=== PATIENT | female | born 1955 | race Caucasian/White ===

== ENCOUNTER → 2018-03-17 06:43 | Outpatient (CLI) | payer OTHER, SELFPAY ==
--- NOTE | 2018-03-17 06:46 | ECHOCS_ITS ---
Reason For Study: CAD/ASHD Procedure This was a 2D Doppler, Color Flow transthoracic echocardiogram. Exam performed in department. Left Ventricle Normal LV size. The estimated ejection fraction is 35 %. Moderately severe segmental systolic dysfunction (see wall motion). Transmitral diastolic flow velocities suggest mild (stage 1) diastolic dysfunction (reversed pattern). Mid-Lateral : Akinetic. Lateral-Basal: Akinetic. Posterior-Basal: Hypokinetic. Mid-Posterior: Hypokinetic. Mid-Inferior: Mildly hypokinetic. Right Ventricle Normal RV size. Normal systolic function. Atria Normal left atrium. Normal right atrium. Mitral Valve Normal mitral valve. Mild (1+) eccentric mitral valve insufficiency. Tricuspid Valve Normal tricuspid valve. Mild (1+) tricuspid valve insufficiency. Pulmonary artery systolic pressure is 29 mmHg. Aortic Valve Trisinus/trileaflet aortic valve. Mild (1+) eccentric aortic valve insufficiency. Pulmonic Valve Normal pulmonic valve. Great Vessels Normal aortic root. The pulmonary artery is normal size. Normal inferior vena cava. Pericardium/Pleural No pericardial effusion. Medication Diluted definity 4ml given slow IV push to enhance endocardial definition. MMode/2D Measurements & Calculations LVIDd: 5.6 cm IVSd: 0.93 cm Ao root diam: 2.9 cm LVIDs: 4.5 cm LVPWd: 0.85 cm LA dimension: 3.6 cm RVDd: 2.3 cm FS: 20.0 % LAV(MOD-bp): 51.1 ml LVAd ap4: 37.0 cm2 SV(MOD-sp4): 68.1 ml LAV(MOD-bp) Indexed: 26.4 ml/m2 EDV(MOD-sp4): 137.9 ml LAV(MOD-sp2): 56.5 ml EDV(sp4-el): 142.2 ml LAV(MOD-sp4): 40.6 ml LVAs ap4: 24.5 cm2 ESV(MOD-sp4): 69.8 ml ESV(sp4-el): 72.9 ml EF(MOD-sp4): 49.4 % EF(sp4-el): 48.7 % SV(sp4-el): 69.3 ml LA A4 area: 15.4 cm2 RA A4 area: 10.6 cm2 Time Measurements MV dec time: 0.43 sec Doppler Measurements & Calculations MV E max enrqiue: 65.6 cm/sec Lat Peak E' Enrique: 6.7 cm/sec Med Peak E' Enrique: 5.5 cm/sec MV A max enrique: 76.0 cm/sec E/E' lat: 9.8 E/E' med: 11.9 MV E/A: 0.86 Ao V2 max: 191.5 cm/sec AI max enrique: 414.2 cm/sec LV V1 max: 94.0 cm/sec Ao max P.7 mmHg AI max P.7 mmHg LV V1 max P.5 mmHg AI dec slope: 127.9 cm/sec2 AI P1/2t: 948.6 msec PA V2 max: 102.2 cm/sec TR max enrique: 258.0 cm/sec TR max P.6 mmHg Interpretation Summary Normal LV size. The estimated ejection fraction is 35 %. Moderately severe segmental systolic dysfunction (see wall motion). Transmitral diastolic flow velocities suggest mild (stage 1) diastolic dysfunction (reversed pattern). Mild (1+) eccentric mitral valve insufficiency. Mild (1+) tricuspid valve insufficiency. Contrast injection was performed. Ordering Physician: Alejandro Sanford Referring Physician: TWIN HEWITT Performed By: Frieda Leon RDCS
--- NOTE | 2018-03-17 12:41 | STRESSREP ---
Stress Test Report Exercise myocardial perfusion stress test. 62 year old lady with a history of known coronary artery disease status post previous stenting. Medications aspirin atorvastatin and losartan. Stress protocol: Resting EKG demonstrates sinus bradycardia with a rate of 50 bpm T-wave inversions noted in lead III and aVF. The patient exercised according to the regular Phill protocol for a total duration of 5 minutes patient completed 2 minutes into stage II of the Phill protocol the maximum heart rate attained was 150 bpm which was 95% of maximum predicted heart rate the maximum workload attained was 7 metabolic equivalents. The patient maintained sinus rhythm throughout the recording at rest there were no ST or T-wave changes noted suggest ischemia. There were frequent premature ventricular complexes noted some in the pattern of bigeminy. At peak exercise no ST or T-wave changes were noted suggest ischemia. The resting blood pressure is 118/64 with a peak blood pressure of 148/78. Patient experienced short nests of breath and palpitations but no chest pain was noted. Myocardial perfusion protocol. 11.9 mCi of technetium 99m sestamibi was injected at rest. The patient exercised according to Phill protocol for 5 minutes completing 7 metabolic equivalents at peak exercise 34.2 mCi of technetium 99m sestamibi was injected stress images were obtained stress and rest images were reconstructed and compared in the short axis vertical long and horizontal long axis. Gated images were also obtained Perfusion SPECT analysis: Review of the stress images demonstrate a normal cardiac silhouette size. The septum mid inferior wall and apex appeared well perfused the anterior wall is also well perfused. The basal inferior wall and inferior inferolateral wall has a medium-sized perfusion defect. The mid lateral wall also has a perfusion defect. This is present on the stress and rest images to a similar extent suggesting a previous infarct involving the mid lateral wall, basal inferior and inferolateral wall. There is no reversibility to suggest ischemia. Gated SPECT analysis: The gated ejection fraction is 32%. Conclusion: Ischemic cardiomyopathy. Exercise stress test with evidence of previous basal inferior, inferolateral and mid lateral infarct. No ischemia present.
== END ==
PROVIDERS: Family Provider Family Medicine; PCP Family Medicine; Visit Provider Internal Medicine Cardiovascular Disease
DX: I05.9 Rheumatic mitral valve disease, unspecified (principal); Z95.5 Presence of coronary angioplasty implant and graft
CPT/HCPCS: 78452; 93017; 93306; A9500; Q9957; A4216; C8929

== ENCOUNTER → 2018-08-19 10:43 | Outpatient (CLI) | payer OTHER, SELFPAY ==
[2018-08-05 10:32] VITALS: BMI 32.3
--- NOTE | 2018-08-19 10:44 | ECHOD_ITS ---
Reason For Study: CAD/ASHD Procedure This was a 2D Doppler, Color Flow transthoracic echocardiogram. Exam performed in department. Left Ventricle Moderately dilated left ventricle. The estimated ejection fraction is 40 %. Moderate segmental systolic dysfunction (see wall motion). Stage 1 diastolic dysfunction. Lateral-Basal: Akinetic. Mid- Lateral : Akinetic. Posterior-Basal: Hypokinetic. Mid-Posterior: Hypokinetic. The rest of the wall segments are normal. Right Ventricle Normal RV size. Normal systolic function. Atria Normal left atrium. Normal right atrium. Mitral Valve Normal mitral valve. Mild (1+) eccentric mitral valve insufficiency. Tricuspid Valve Normal tricuspid valve. Mild tricuspid valve insufficiency. Pulmonary artery systolic pressure is 30 mmHg. Aortic Valve Trisinus/trileaflet aortic valve. Mild diffuse aortic valve thickening. Mild (1+) eccentric aortic valve insufficiency. Pulmonic Valve Normal pulmonic valve. Great Vessels Normal aortic root. The pulmonary artery is normal size. Normal inferior vena cava. Pericardium/Pleural No pericardial effusion. MMode/2D Measurements & Calculations LVIDd: 6.2 cm IVSd: 0.88 cm Ao root diam: 3.2 cm LVIDs: 5.0 cm LVPWd: 0.75 cm RVDd: 3.5 cm FS: 19.1 % LAV(MOD-bp): 48.5 ml LVAd ap4: 37.2 cm2 SV(MOD-sp4): 58.0 ml LAV(MOD-bp) Indexed: 24.8 ml/m2 EDV(MOD-sp4): 139.0 ml LAV(MOD-sp2): 51.9 ml EDV(sp4-el): 146.8 ml LAV(MOD-sp4): 40.0 ml LVAs ap4: 26.1 cm2 ESV(MOD-sp4): 81.0 ml ESV(sp4-el): 84.9 ml EF(MOD-sp4): 41.7 % EF(sp4-el): 42.2 % SV(sp4-el): 61.9 ml LA A4 area: 15.6 cm2 LA dimension(2D): 3.8 cm RA A4 area: 10.8 cm2 Time Measurements MV dec time: 0.35 sec Doppler Measurements & Calculations MV E max enrique: 59.0 cm/sec Lat Peak E' Enrique: 7.3 cm/sec Med Peak E' Enrique: 5.8 cm/sec MV A max enrique: 88.7 cm/sec E/E' lat: 8.1 E/E' med: 10.3 MV E/A: 0.67 Ao V2 max: 186.5 cm/sec AI max enrique: 430.6 cm/sec LV V1 max: 80.2 cm/sec Ao max P.9 mmHg AI max P.2 mmHg LV V1 max P.6 mmHg AI dec slope: 157.2 cm/sec2 AI P1/2t: 802.0 msec PA V2 max: 106.1 cm/sec TR max enrique: 253.3 cm/sec TR max P.7 mmHg Interpretation Summary Moderately dilated left ventricle. The estimated ejection fraction is 40 %. Stage 1 diastolic dysfunction. Moderate segmental systolic dysfunction (see wall motion). Mild tricuspid valve insufficiency. Pulmonary artery systolic pressure is 30 mmHg. Compared to previous study, the left ventricular systolic function is the same.. Ordering Physician: Alejandro Sanford Referring Physician: TWIN HEWITT Performed By: Frieda Leon RDCS
--- OUTSIDE RECORDS SUMMARY | 2018-10-05 05:42 | XMS RPT_ITS ---
:1955 Author Organization [facility] Care Team Providers Name Role Phone Alejandro Sanford Attending Unavailable Claribel, Alejandro Referring Unavailable Twin Portillo Primary Care Unavailable Claribel, Alejandro Consulting Unavailable Elen Khan Attending Unavailable Claribel, Jenera Attending Unavailable Twin Portillo Referring Unavailable Twin Portillo Primary Care Unavailable ClaribelNathan galvanril Attending Unavailable Claribel, Alejandro Referring Unavailable Twin Portillo Primary Care Unavailable Claribel, Alejandro Attending Unavailable Claribel, Jenera Attending Unavailable Twin Portillo Referring Unavailable Claribel, Alejandro Attending Unavailable Claribel, Jenera Referring Unavailable Twin Portillo Primary Care Unavailable PROBLEMS PROBLEMS DATE TYPE CONDITION / CODE ATTENDING STATUS SOURCE 08/19/2018 Unknown I25.5 - Ischemic Claribel, Jenera Active [facility] cardiomyopathy / Community I25.5(ICD-10) Hospital Repository 08/05/2018 Unknown I25.10 - Claribel, Alejandro Active [facility] Atherosclerotic [facility] coronary artery Repository without angina pectoris / I25.10(ICD-10) 08/05/2018 Unknown I10 - Essential Claribel, Jenera Active [facility] (primary) Community hypertension / Hospital I10(ICD-10) Repository 08/05/2018 Unknown E78.00 - Pure Claribel, Alejandro Active [facility] hypercholesterolemia, Community unspecified / Hospital E78.00(ICD-10) Repository 01/06/2018 Unknown E66.9 - Obesity, Claribel, Jenera Active [facility] unspecified / Community E66.9(ICD-10) Hospital Repository 01/06/2018 Unknown Z95.5 - Presence of Claribel, Jenera Active [facility] coronary angioplasty Community implant and graft / Hospital Z95.5(ICD-10) Repository 01/06/2018 Unknown E78.5 - Claribel, Alejandro Active [facility] Hyperlipidemia, Community unspecified / Hospital E78.5(ICD-10) Repository 01/06/2018 Unknown I05.9 - Rheumatic Claribel, 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, Community unspecified / Hospital I05.9(ICD-10) Repository PROCEDURES PROCEDURES No Procedure Records FoundRESULTS RESULTS ECHOCARDIOGRAM COMPLETE Observed: 08/19/2018 Status: F Source: [facility] 1:45 PM [facility] REPOSITORY [facility] Cardiovascular Services [address] [place] [address] Echo Complete 08/19/18 1114 MR#: [id number] Acct: [id number] Name: MACIE GOEL Rep #: [id number] : 1955 62 From: Alejandro Sanford MD Attending Dr: Claribel BUSTAMANTE,Alejandro Status: REG CLI Ordering Dr: Alejandro Sanford MD Date: 08/19/18 Location: [facility] Sex: F C Admitted: Reason For Study: CAD/ASHD Procedure This was a 2D Doppler, Color Flow transthoracic echocardiogram. Exam performed in department. Left Ventricle Moderately dilated left ventricle. The estimated ejection fraction is 40 %. Moderate segmental systolic dysfunction (see wall motion). Stage 1 diastolic dysfunction. Lateral-Basal: Akinetic. Mid- Lateral : Akinetic. Posterior-Basal: Hypokinetic. Mid-Posterior: Hypokinetic. The rest of the wall segments are normal. Right Ventricle Normal RV size. Normal systolic function. Atria Normal left atrium. Normal right atrium. Mitral Valve Normal mitral valve. Mild (1+) eccentric mitral valve insufficiency. Tricuspid Valve Normal tricuspid valve. Mild tricuspid valve insufficiency. Pulmonary artery systolic pressure is 30 mmHg. Aortic Valve Trisinus/trileaflet aortic valve. Mild diffuse aortic valve thickening. Mild (1+) eccentric aortic valve insufficiency. Pulmonic Valve Normal pulmonic valve. Great Vessels Normal aortic root. The pulmonary artery is normal size. Normal inferior vena cava. Pericardium/Pleural No pericardial effusion. MMode/2D Measurements AND Calculations LVIDd: 6.2 cm IVSd: 0.88 cm Ao root diam: 3.2 cm LVIDs: 5.0 cm LVPWd: 0.75 cm RVDd: 3.5 cm FS: 19.1 % LAV(MOD-bp): 48.5 ml LVAd ap4: 37.2 cm2 SV(MOD-sp4): 58.0 ml LAV(MOD-bp) Indexed: 24.8 ml/m2 EDV(MOD-sp4): 139.0 ml LAV(MOD-sp2): 51.9 ml EDV(sp4-el): 146.8 ml LAV(MOD-sp4): 40.0 ml LVAs ap4: 26.1 cm2 ESV(MOD-sp4): 81.0 ml ESV(sp4-el): 84.9 ml EF(MOD-sp4): 41.7 % EF(sp4-el): 42.2 % SV(sp4-el): 61.9 ml LA A4 area: 15.6 cm2 LA dimension(2D): 3.8 cm RA A4 area: 10.8 cm2 Time Measurements MV dec time: 0.35 sec Doppler Measurements AND Calculations MV E max enrique: 59.0 cm/sec Lat Peak E' Enrique: 7.3 cm/sec Med Peak E' Enrique: 5.8 cm/sec MV A max enrique: 88.7 cm/sec E/E' lat: 8.1 E/E' med: 10.3 MV E/A: 0.67 Ao V2 max: 186.5 cm/sec AI max enrique: 430.6 cm/sec LV V1 max: 80.2 cm/sec Ao max P.9 mmHg AI max P.2 mmHg LV V1 max P.6 mmHg AI dec slope: 157.2 cm/sec2 AI P1/2t: 802.0 msec PA V2 max: 106.1 cm/sec TR max enrique: 253.3 cm/sec TR max P.7 mmHg Interpretation Summary Moderately dilated left ventricle. The estimated ejection fraction is 40 %. Stage 1 diastolic dysfunction. Moderate segmental systolic dysfunction (see wall motion). Mild tricuspid valve insufficiency. Pulmonary artery systolic pressure is 30 mmHg. Compared to previous study, the left ventricular systolic function is the same.. Ordering Physician: Alejandro Sanford Referring Physician: TWIN PORTILLO Performed By: Frieda Leon RDCS 08/19/18 1344 Date Alejandro Sanford MD CC: Alejandro Sanford MD; Twin Portillo MD Date Dictated: 08/19/18 1114 Date Transcribed: 08/19/18 1344 Research Administrator: Signed CARDIOLOGY VISIT Observed: 08/05/2018 Status: F Source: [place] REPORT 11:02 AM [facility] REPOSITORY [facility] [address] [place] [address] OFFICE VISIT Date of Service: 08/05/18 MR#: [id number] Acct: [id number] Name: MACIE GOEL Rep #: [id number] : 1955 Provider: Alejandro Sanford MD Age/Sex: 62/F [place] [facility] Status: Signed HPI HPI Chief Complaint: Follow-up Details: MACIE GOEL, is a 62 F who presents to the office today for a follow-up visit. She is a lady with a history of coronary artery disease status post cardiac catheterization which had demonstrated a normal left main coronary artery, left anterior descending artery with mild disease, left circumflex artery with a high-grade stenosis for which she underwent angioplasty and stenting. The right coronary artery did not demonstrate any significant abnormality. Her ejection fraction at that time was noted to be 40-45% with mild mitral regurgitation. This was in 2014. After her last visit she underwent an echocardiogram which demonstrated an ejection fraction of 35% with segmental wall motion abnormalities noted. She had been asymptomatic. She was started on medication and has denied any chest pain or shortness of breath or paroxysmal nocturnal dyspnea. She has had no dizziness or diaphoresis no near syncope or syncope. Her physical exam today demonstrates clear lung winters regular rate and rhythm and no pedal edema. 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 Required: No Accompanied by: None Is patient in pain?: No Allergies Sulfa (Sulfonamide Antibiotics) Adverse Reaction (Verified 01/06/18 13:04) Unknown sulfamethoxazole [From Bactrim] Adverse Reaction (Verified 01/06/18 13:04) Unknown trimethoprim [From Bactrim] Adverse Reaction (Verified 01/06/18 13:04) Unknown Medications aspirin 81 mg tablet,delayed release 81 mg PO QDAY 01/05/18 [History Confirmed 08/05/18] atorvastatin 80 mg tablet 80 mg PO QHS #90 tab 01/06/18 [Rx Confirmed 08/05/18] losartan 25 mg tablet 25 mg PO QDAY #90 tab 01/06/18 [Rx Confirmed 08/05/18] nitroglycerin 0.4 mg sublingual tablet 0.4 mg SUBLINGUAL Q5- 15M PRN #25 tab 01/06/18 [Rx Confirmed 08/05/18] carvedilol 6.25 mg tablet 6.25 mg PO BID #180 tab 08/05/18 [Rx Confirmed 08/05/18] [facility] Medical History Obesity (BMI 30-39.9) (Chronic) Ischemic cardiomyopathy (Chronic) Atherosclerosis of coronary artery of [place] heart without angina pectoris (Chronic) Hypertension (Chronic) Hyperlipidemia (Chronic) Surgical History History of coronary artery stent placement (Chronic 07/24/15) History of appendectomy (Chronic) History of left heart catheterization (Chronic 07/24/15) History of tonsillectomy (Chronic) Hx of cholecystectomy (Chronic) Family History Mother Heart disease atrial fib, PPM Brother Hypertension Father Cancer Social History Smoking Status: Never smoker alcohol intake: never ROS Const Const: Negative for fatigue, weakness, night sweats, excessive sweating, frequent falls, headache(s) or daytime sleepiness Eyes Eyes: Negative for loss of peripheral vision, transient loss of vision, blind spots, double vision or blurry vision ENT ENT: Negative for headache(s), dizziness, balance problems, Nosebleed/epistaxis, tongue swelling or lip swelling Cardio Chest Pain: No Palpitations: No Edema: None Muscle aches with walking: None Resp Respiratory: Negative for SOB at rest, SOB orthopnea\SOB lying down, Cough, paroxysmal nocturnal dyspnea or SOB with activity GI GI: Negative nausea, vomiting, heartburn, black,tarry stools or bright, red blood in stools : Negative for hematuria Musc Musc: Negative for balance problems, muscle aches/ myalgia, muscle weakness or joint pain Skin Skin: Negative non-healing lesions, unusual bruising or rash Neuro Neuro: Negative for weakness, frequent falls, headache(s), double vision, dizziness, lightheadedness, orthostatic symptoms, blurry vision or lack of coordination Shashank Hematologic/Lymphatic: Negative for easy bruising or easy bleeding Endo Endo: Negative for fatigue, excessive sweating, cold intolerance, heat intolerance, increased thirst/drinking or hair loss Psych Psych: Negative for anxiety or depression Allergy Allergy/Immunology: Negative for throat swelling, Negative for tongue swelling, Negative for hives, Negative for rash, Negative for lip swelling Cardiology Exam Const Appearance: cooperative, healthy appearing, well developed, well groomed and no acute distress Nutritional Appearance: well nourished and average body habitus Orientation: alert, awake and oriented x3 Head Head: normal to inspection, normocephalic and atraumatic Ears: hearing grossly normal bilaterally and external ears normal Nose: external nose normal, nasal mucous membranes and turbinates normal, nares normal, septum normal, no nasal discharge Face and Sinus: face symmetric Mouth: oral mucosae normal, tongue normal, oropharynx normal and moist mucous membranes Teeth and gingiva: dentition normal Throat: posterior oropharynx normal, tonsils normal and uvula midline Eyes General: appearance normal, both eyes and all related structures Eyelids: eyelids normal Conjunctivae: conjunctivae normal Pupils: PERRL, normal by confrontation and accommodation normal EOM: EOM intact bilaterally Neck Neck: normal visual inspection, trachea midline and no JVD JVD: +5 Carotids: normal carotid upstroke and bounding pulses Chest Chest inspection: normal inspection of the chest, symmetric chest movement and normal respiratory effort Auscultation: Bilateral: Clear to Auscultation Cardio Palpation: normal PMI Rate: regular rate Rhythm: regular rhythm Heart sounds: S1 normal, S2 normal and normal, physiologic split S2; negative rub, gallop or murmur GI GI: normal to inspection, soft, no hepatosplenomegaly and bowel sounds present Neuro General: alert, awake, oriented x3, no focal sensory deficit, gait normal and moves all extremities Skin Skin: no rashes or lesions noted Extremities Pulses: Normal: Right Femoral Pulse, Left Femoral Pulse, Right Dorsalis Pedis Pulse, Left Dorsalis Pedis Pulse, Right Posterior Tibial Pulse, Left Posterior Tibial Pulse, Right Radial Pulse, Left Radial Pulse Lower Extremity Edema: None: Bilateral Musculoskel Musculoskeletal: No joint tenderness Psych Psychological: normal affect Assessment AND Plan 1. Ischemic cardiomyopathy I25.5 Plan She does have a history of ischemic cardiomyopathy with her echocardiographic results from March as noted above. She had been placed on carvedilol and losartan which will be increased and we will repeat her echocardiogram to see whether there is been any improvement in her function. Depending on those findings further recommendations will be made. Orders Orders: 2. Atherosclerosis of coronary artery of de[place] heart without angina pectoris I25.10 [id number] Cx w/ Xience Alpine Stent 07/24/2015 Plan She does have a history of atherosclerotic cardiovascular disease most recent stress test demonstrated evidence of previous inferior, inferolateral and inferior basal infarct with no evidence of ischemia. This corresponds to the area of the previous angioplasty and stenting. We will continue with medical therapy especially as she has no symptomatology. 3. Essential hypertension I10 Plan She does have a history of hypertension which appears to be fairly well controlled I would suggest that we increase the dose of her carvedilol to 6.25 mg twice a day. She will continue this together with her losartan. 4. Pure hypercholesterolemia E78.00 Plan She does have a history of hyperlipidemia. Her most recent lipid profile demonstrated a total cholesterol 144, HDL of 51 and LDL of 75. No changes will be made she will remain on her high intensity statin. Plan Detail Other Medications New: Discontinued: carvedilol give with food (meal/snack) Discontinued Re3.125 mg PO BID 60 tabs 11RF ason: Order Changed Follow Up 6 Months (mmm) Coding Level of Care Code Off vis,est,level 3 Diagnoses Ischemic cardiomyopathy I25.5 Atherosclerosis of coronary artery of [place] heart without angina pectoris I25.10 Essential hypertension I10 Hypertension type: essential hypertension Pure hypercholesterolemia E78.00 Hyperlipidemia type: pure hypercholesterolemia Coding Level of Care Code Off vis,est,level 3 Diagnoses Ischemic cardiomyopathy I25.5 Atherosclerosis of coronary artery of [place] heart without angina pectoris I25.10 Essential hypertension I10 Hypertension type: essential hypertension Pure hypercholesterolemia E78.00 Hyperlipidemia type: pure hypercholesterolemia 08/05/18 1102 <Electronically signed by Alejandro Sanford MD> Date Alejandro Sanford MD Cosigner Signature: Date (if applicable) CC: Twin Portillo MD ECHO, COMPLETE W/ Observed: 03/17/2018 Status: F Source: [facility] CONTRAST 1:18 PM [facility] REPOSITORY [facility] Cardiovascular Services [address] [place] [address] Echo Complete W/ Contrast 03/17/18 0920 MR#: [id number] Acct: [id number] Name: AMANDOMACIE Artemio Rep #: [id number] : 1955 62 From: Alejandro Sanford MD Attending Dr: Alejandro Sanford MD Status: REG CLI Ordering Dr: Alejandro Sanford MD Date: 03/17/18 Location: [facility] Sex: F C Admitted: Reason For Study: CAD/ASHD Procedure This was a 2D Doppler, Color Flow transthoracic echocardiogram. Exam performed in department. Left Ventricle Normal LV size. The estimated ejection fraction is 35 %. Moderately severe segmental systolic dysfunction (see wall motion). Transmitral diastolic flow velocities suggest mild (stage 1) diastolic dysfunction (reversed pattern). Mid-Lateral : Akinetic. Lateral-Basal: Akinetic. Posterior-Basal: Hypokinetic. Mid-Posterior: Hypokinetic. Mid-Inferior: Mildly hypokinetic. Right Ventricle Normal RV size. Normal systolic function. Atria Normal left atrium. Normal right atrium. Mitral Valve Normal mitral valve. Mild (1+) eccentric mitral valve insufficiency. Tricuspid Valve Normal tricuspid valve. Mild (1+) tricuspid valve insufficiency. Pulmonary artery systolic pressure is 29 mmHg. Aortic Valve Trisinus/trileaflet aortic valve. Mild (1+) eccentric aortic valve insufficiency. Pulmonic Valve Normal pulmonic valve. Great Vessels Normal aortic root. The pulmonary artery is normal size. Normal inferior vena cava. Pericardium/Pleural No pericardial effusion. Medication Diluted definity 4ml given slow IV push to enhance endocardial definition. MMode/2D Measurements AND Calculations LVIDd: 5.6 cm IVSd: 0.93 cm Ao root diam: 2.9 cm LVIDs: 4.5 cm LVPWd: 0.85 cm LA dimension: 3.6 cm RVDd: 2.3 cm FS: 20.0 % LAV(MOD-bp): 51.1 ml LVAd ap4: 37.0 cm2 SV(MOD-sp4): 68.1 ml LAV(MOD-bp) Indexed: 26.4 ml/m2 EDV(MOD-sp4): 137.9 ml LAV(MOD-sp2): 56.5 ml EDV(sp4-el): 142.2 ml LAV(MOD-sp4): 40.6 ml LVAs ap4: 24.5 cm2 ESV(MOD-sp4): 69.8 ml ESV(sp4-el): 72.9 ml EF(MOD-sp4): 49.4 % EF(sp4-el): 48.7 % SV(sp4-el): 69.3 ml LA A4 area: 15.4 cm2 RA A4 area: 10.6 cm2 Time Measurements MV dec time: 0.43 sec Doppler Measurements AND Calculations MV E max enrique: 65.6 cm/sec Lat Peak E' Enrique: 6.7 cm/sec Med Peak E' Enrique: 5.5 cm/sec MV A max enrique: 76.0 cm/sec E/E' lat: 9.8 E/E' med: 11.9 MV E/A: 0.86 Ao V2 max: 191.5 cm/sec AI max enrique: 414.2 cm/sec LV V1 max: 94.0 cm/sec Ao max P.7 mmHg AI max P.7 mmHg LV V1 max P.5 mmHg AI dec slope: 127.9 cm/sec2 AI P1/2t: 948.6 msec PA V2 max: 102.2 cm/sec TR max enrique: 258.0 cm/sec TR max P.6 mmHg Interpretation Summary Normal LV size. The estimated ejection fraction is 35 %. Moderately severe segmental systolic dysfunction (see wall motion). Transmitral diastolic flow velocities suggest mild (stage 1) diastolic dysfunction (reversed pattern). Mild (1+) eccentric mitral valve insufficiency. Mild (1+) tricuspid valve insufficiency. Contrast injection was performed. Ordering Physician: Alejandro Sanford Referring Physician: TWIN PORTILLO Performed By: Frieda Leon RDCS 03/17/18 1318 Date Alejandro Sanford MD CC: Alejandro Sanford MD; Twin Portillo MD Date Dictated: 03/17/18919 Date Transcribed: 03/17/181317 Research Administrator: Signed STRESS REPORT Observed: 03/17/2018 Status: F Source: [facility] 12:45 PM [facility] REPOSITORY [facility] Cardiovascular Services [address] [place] [address] MR#: [id number] Acct: [id number] Name: MACIE GOEL Rep #: [id number] : 1955 62 From: Alejandro Sanford MD Primary Care: Twin Portillo MD Status: REG CLI Ordering Dr: Sex: F C Stress Test Report Exercise myocardial perfusion stress test. 62 year old lady with a history of known coronary artery disease status post previous stenting. Medications aspirin atorvastatin and losartan. Stress protocol: Resting EKG demonstrates sinus bradycardia with a rate of 50 bpm T-wave inversions noted in lead III and aVF. The patient exercised according to the regular Phill protocol for a total duration of 5 minutes patient completed 2 minutes into stage II of the Phill protocol the maximum heart rate attained was 150 bpm which was 95% of maximum predicted heart rate the maximum workload attained was 7 metabolic equivalents. The patient maintained sinus rhythm throughout the recording at rest there were no ST or T-wave changes noted suggest ischemia. There were frequent premature ventricular complexes noted some in the pattern of bigeminy. At peak exercise no ST or T-wave changes were noted suggest ischemia. The resting blood pressure is 118/64 with a peak blood pressure of 148/78. Patient experienced short nests of breath and palpitations but no chest pain was noted. Myocardial perfusion protocol. 11.9 mCi of technetium 99m sestamibi was injected at rest. The patient exercised according to Phill protocol for 5 minutes completing 7 metabolic equivalents at peak exercise 34.2 mCi of technetium 99m sestamibi was injected stress images were obtained stress and rest images were reconstructed and compared in the short axis vertical long and horizontal long axis. Gated images were also obtained Perfusion SPECT analysis: Review of the stress images demonstrate a normal cardiac silhouette size. The septum mid inferior wall and apex appeared well perfused the anterior wall is also well perfused. The basal inferior wall and inferior inferolateral wall has a medium-sized perfusion defect. The mid lateral wall also has a perfusion defect. This is present on the stress and rest images to a similar extent suggesting a previous infarct involving the mid lateral wall, basal inferior and inferolateral wall. There is no reversibility to suggest ischemia. Gated SPECT analysis: The gated ejection fraction is 32%. Conclusion: Ischemic cardiomyopathy. Exercise stress test with evidence of previous basal inferior, inferolateral and mid lateral infarct. No ischemia present. 03/17/18 8855 <Electronically signed by Alejandro Sanford MD> Date Alejandro Sanford MD CC: Alejandro Sanford MD; Twin Portillo MD Date Dictated: 03/17/18 1241 Date Transcribed: 03/17/18 1241 Research Administrator: [place] Signed CARDIOLOGY VISIT Observed: 01/06/2018 Status: F Source: [facility] REPORT 1:50 PM [facility] REPOSITORY [facility] [address] [place] [address] OFFICE VISIT Date of Service: 01/06/18 MR#: [id number] Acct: [id number] Name: MACIE GOEL Rep #: [id number] : 1955 Provider: Alejandro Sanford MD Age/Sex: 62/F [place] [facility] [place]: Signed HPI HPI Chief Complaint: Initial cardiovascular evaluation Details: MACIE GOEL, is a 62 F who presents to the office today for an initial cardiovascular evaluation. She is a pleasant lady with a history of hyperlipidemia coronary artery disease diagnosed in 2014 after a stress test. She apparently underwent a stress test and [place] which she flunked and had to be transferred emergently to [facility] she underwent an echocardiogram with demonstrated an ejection fraction of 40-45% with mild mitral regurgitation with a posteriorly directed jet. She underwent a cardiac catheterization which demonstrated a normal left main coronary artery, and left anterior descending artery with mild disease, a left circumflex artery with a high-grade stenotic lesion for which she underwent angioplasty and stenting with a 3 x 23 mm drug-eluting stent. Her right coronary artery did not demonstrate any significant stenosis. Since then she is apparently done well denying any chest pain or shortness breath or paroxysmal nocturnal dyspnea pedal edema she has had no neck arm or jaw discomfort suggest angina. She has been compliant with all her medications she presents today for a reevaluation of her cardiac condition. Her physical exam today demonstrates clear lung winters regular rate and rhythm a 2/6 systolic murmur noted at the apex radiating to the axilla and no pedal edema present. Intake Vital Signs01/06/18 Height 5 ft 5.5 in Intake Visit Reasons: PCP ref'd for CAD Allergies Sulfa (Sulfonamide Antibiotics) Adverse Reaction (Verified 01/06/18 13:04) Unknown sulfamethoxazole [From Bactrim] Adverse Reaction (Verified 01/06/18 13:04) Unknown trimethoprim [From Bactrim] Adverse Reaction (Verified 01/06/18 13:04) Unknown Medications aspirin 81 mg tablet,delayed release 81 mg PO QDAY 01/05/18 [History Confirmed 01/06/18] atorvastatin 80 mg tablet 80 mg PO QHS #90 tab 01/06/18 [Rx Confirmed 01/06/18] losartan 25 mg tablet 25 mg PO QDAY #90 tab 01/06/18 [Rx Confirmed 01/06/18] nitroglycerin 0.4 mg sublingual tablet 0.4 mg SUBLINGUAL Q5- 15M PRN #25 tab 01/06/18 [Rx Confirmed 01/06/18] [facility] Medical History Obesity (BMI 30-39.9) (Chronic) Ischemic cardiomyopathy (Chronic) Atherosclerosis of coronary artery of [place] heart without angina pectoris (Chronic) Hypertension (Chronic) Hyperlipidemia (Chronic) Surgical History History of coronary artery stent placement (Chronic 07/24/15) History of appendectomy (Chronic) History of left heart catheterization (Chronic 07/24/15) History of tonsillectomy (Chronic) Hx of cholecystectomy (Chronic) Family History Mother Heart disease atrial fib, PPM Brother Hypertension Father Cancer Social History Smoking Status: Never smoker alcohol intake: never ROS Const Const: Negative for fatigue, weakness, difficulty sleeping, frequent falls, headache(s) or excessive sweating Eyes Eyes: Negative for loss of peripheral vision, transient loss of vision, blurry vision or double vision ENT ENT: Negative for headache(s), dizziness, Nosebleed/epistaxis or balance problems Cardio Chest Pain: No Edema: None Muscle aches with walking: None Resp Respiratory: Negative for SOB with activity, SOB at rest, SOB orthopnea\SOB lying down or paroxysmal nocturnal dyspnea GI GI: Negative nausea or heartburn : Negative for hematuria Musc Musc: Negative for muscle aches/ myalgia, muscle weakness, joint pain or balance problems Skin Skin: Negative non-healing lesions, unusual bruising or rash Neuro Neuro: Negative for weakness, frequent falls, blurry vision, headache(s), dizziness, lightheadedness, orthostatic symptoms or double vision Shashank Hematologic/Lymphatic: Negative for easy bruising Endo Endo: Negative for fatigue, excessive sweating or increased thirst/drinking Psych Psych: Negative for anxiety or depression Allergy Allergy/Immunology: Negative for hives, Negative for rash Cardiology Exam Const Appearance: cooperative, healthy appearing, well developed, well groomed and no acute distress Nutritional Appearance: well nourished and average body habitus Orientation: alert, awake and oriented x3 Head Head: normal to inspection, normocephalic and atraumatic Ears: hearing grossly normal bilaterally and external ears normal Nose: external nose normal, nasal mucous membranes and turbinates normal, nares normal, septum normal, no nasal discharge Face and Sinus: face symmetric Mouth: oral mucosae normal, tongue normal, oropharynx normal and moist mucous membranes Teeth and gingiva: dentition normal Throat: posterior oropharynx normal, tonsils normal and uvula midline Eyes General: appearance normal, both eyes and all related structures Eyelids: eyelids normal Conjunctivae: conjunctivae normal Pupils: PERRL, normal by confrontation and accommodation normal EOM: EOM intact bilaterally Neck Neck: normal visual inspection, trachea midline and no JVD JVD: +5 Carotids: normal carotid upstroke and bounding pulses Chest Chest inspection: normal inspection of the chest, symmetric chest movement and normal respiratory effort Auscultation: Bilateral: Clear to Auscultation Cardio Palpation: normal PMI Rate: regular rate Rhythm: regular rhythm Heart sounds: S1 normal and S2 normal Murmur: Grade 2/6, soft, late systolic and apex GI GI: normal to inspection, soft, no hepatosplenomegaly and bowel sounds present Neuro General: alert, awake, oriented x3, no focal sensory deficit, gait normal and moves all extremities Skin Skin: no rashes or lesions noted Extremities Pulses: Normal: Right Femoral Pulse, Left Femoral Pulse, Right Dorsalis Pedis Pulse, Left Dorsalis Pedis Pulse, Right Posterior Tibial Pulse, Left Posterior Tibial Pulse, Right Radial Pulse, Left Radial Pulse Lower Extremity Edema: None: Bilateral Musculoskel Musculoskeletal: No joint tenderness Psych Psychological: normal affect Assessment AND Plan 1. History of coronary artery stent placement Z95.5 [id number] Cx w/ 3.0 x 23 mm Xience Alpine Stent 07/24/2015 Plan She does have a history of coronary artery disease status post stent placement in the circumflex artery distribution almost 3 years ago. My recommendation at this time will be for us to pursue a stress test to exclude any residual or progressive ischemia. She should however continue on the current medical therapy without any changes. Orders Orders: 2. Essential hypertension I10 Plan Her blood pressure appears to be under good control on the current medical therapy she is on losartan and has not been on any beta-trupti. This will be revisited after the stress test. Orders Orders: 3. Ischemic cardiomyopathy I25.5 Plan She does have evidence of ischemic cardiomyopathy her last echocardiogram had demonstrated ejection fraction of 40-45% a repeat echocardiogram should be performed to reassess her function after her revascularization. Orders Orders: 4. Mitral valve disease I05.9 Plan She does have evidence of mitral valve disease by physical exam. Her echocardiogram should be repeated to recharacterize the above. Depending on the findings further recommendations will be made. Orders Orders: 5. Pure hypercholesterolemia E78.00; E78.0 Plan Her most recent lipid profile demonstrated total cholesterol 128 HDL 52 and LDL 59. Her triglycerides were 88. The above numbers are excellent and no changes will be made. Liver function tests are within normal limits. Thank you for allowing me to participate in the care of your patient. 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) Coding Level of Care Code Off vis,new,level 4 Diagnoses History of coronary artery stent placement Z95.5 Essential hypertension I10 Hypertension type: essential hypertension Ischemic cardiomyopathy I25.5 Mitral valve disease I05.9 Pure hypercholesterolemia E78.00; E78.0 Hyperlipidemia type: pure hypercholesterolemia Coding Level of Care Code Off vis,new,level 4 Diagnoses History of coronary artery stent placement Z95.5 Essential hypertension I10 Hypertension type: essential hypertension Ischemic cardiomyopathy I25.5 Mitral valve disease I05.9 Pure hypercholesterolemia E78.00; E78.0 Hyperlipidemia type: pure hypercholesterolemia 01/06/18 1350 <Electronically signed by Alejandro Sanford MD> Date Alejandro Sanford MD Cosigner Signature: Date (if applicable) CC: Twin Portillo MD 12 LEAD EKG PERFORMED Observed: 01/06/2018 Status: F Source: [place] [place] [facility] 1:12 PM [facility] REPOSITORY [facility] [address] [id number] 12 Lead EKG performed by [facility] 01/06/18 1311 MR#: [id number] Acct: [id number] Name: MACIE GOEL Rep #: [id number] : 1955 62 From: Alejandro Sanford MD Attending Dr: Claribel BUSTAMANTE,Alejandro Status: DEP AMB Ordering Dr: Alejandro Sanford MD Date: 01/06/18 [place] [facility] Sex: F C Admitted: BMS/12 Lead EKG performed by [facility] ECG Report Interpretation Sinus Rhythm -Short MS syndrome - frequent multiform ectopic ventricular beats Kt = 112 # VECs = 2, # types 2- Diffuse nonspecific T-abnormality. ABNORMAL Electronically signed on 01/07/2018 at 17:14 by Alejandro Sanford 01/07/18 5285 Date Alejandro Sanford MD CC: Twin Portillo MD Date Dictated: 01/06/18 1311 Date Transcribed: 01/06/181310 Research Administrator: [place] Signed ALLERGIES ALLERGIES DATE TYPE / CODE NAME / CODE REACTION SEVERITY SOURCE 01/06/2018 Drug Sulfa Unknown Unknown [facility]/4160 (Sulfonamide [facility] [address](SNOMED Antibiotics)/ Repository CT) [id number](RX NORM) 01/06/2018 Drug sulfamethoxaz Unknown Unknown [facility]/4160 ole/[id number] Hospital 77415(SNOMED 7(RXNORM) Repository CT) 01/06/2018 Drug trimethoprim/ Unknown Unknown [facility] All[facility]/4160 [id number](RX Hospital [address]508(SNOMED NORM) Repository CT) ENCOUNTERS ENCOUNTERS ADMIT/DISCHARGE ACCOUNT ADMITTING ENCOUNTER LOCATION SOURCE NUMBER CLASS 08/19/2018 [id number] Ambulatory BMSBuilding:B [facility] 4 [facility] Repository 08/19/2018 [id number] Ambulatory [facility] ing:[facility] Repository 08/05/2018/ [id number] Ambulatory BMSBuilding:B [facility] 8 6 MS.[facility] Repository 03/17/2018 [id number] Ambulatory [facility] 3 [facility] ing:[facility] Repository 03/17/2018 [id number] Amb[facility]MS[facility]:W [facility] 01/06/2018/ [id number] Ambulatory BMSBuilding:B [facility] 8 1 MS.[facility] Repository 01/05/2018 [id number] Ambulatory BMSBuilding:B [facility] 3 MS.[facility] Repository PAYERS PAYERS ENCOUNTER GUARANTOR PAYER SUBSCRIBER SOURCE 08/19/2018 MACIE A Primary MACIE A [facility] [id number] Insurance:MEDICAL WALTONDOB: [address] [id number] Hospital [address]Ntc: (330) Number: Repository [phone] () [id number] Date:1747-79-34LH [place] [address]WP: 08/19/2018 Secondary NOT GIVENUNK [facility] Insurance:SELF PAY [facility] Number: Effective Repository Date:2018-08-19 08/19/2018 MACIE A Primary MACIE A [facility] [id number] TR Insurance:MEDICAL WALTONDOB: [address] [id number] Hospital [address]Uvh: [phone]) Number: Repository [phone] () [id number] Date:3164-60-02[place]VA[place] [id number]: 08/19/2018 Secondary NOT GIVENUNK [facility] Insurance:SELF PAY [facility] Number: Effective Repository Date:2018-08-05 08/05/2018 MACIE A Primary MACIE A [facility] [id number] TR Insurance:MEDICAL WALTONDOB: [address] [id number] [address]Tel: (330) Number: Repository [phone] () [id number] Date:1399-96-89ZX [address] [address]ZE: 08/05/2018 Secondary NOT GIVENUNK [facility] Insurance:SELF PAY [facility] Number: Effective Repository Date:2018-08-05 03/17/2018 MACIE A Primary MACIE A [facility] [id number] TR Insurance:MEDICAL WALTONDOB: [address] [id number] [address]Tel: (330) Number: Repository [phone] () [id number] Date:9278-08-97BZ [place] [id number]: 03/17/2018 Secondary NOT GIVENUNK [facility] Insurance:SELF PAY [facility] Number: Effective Repository Date:2018-01-06 03/17/2018 MACIE A Primary MACIE A [facility] [id number] TR Insurance:MEDICAL WALTONDOB: [address] [id number] [address]Tel: (330) Number: Repository [phone] () [id number] Date:1384-23-29SA [place] [id number]: 03/17/2018 Secondary NOT GIVENUNK [facility] Insurance:SELF PAY [facility] Number: Effective Repository Date:2018-03-17 01/06/2018 Dorys Silva Primary MACIE A [facility] [id number] Twp Insurance:MEDICAL WALTONDOB: [address] [id number] [address]Hsv: Number: Repository [id number] (HP) Date:1850-45-56UO [place] [id number]: 01/06/2018 Secondary NOT GIVENUNK In[facility] Insurance:SELF PAY [facility] Number: Effective Repository Date:2018-01-06 01/05/2018 Dorys Shira Primary NOT GIVENUNK [facility] [id number] Insurance:SELF PAY [address] [address]Qlg: Number: Effective Repository Date:2018-01-05 ()
== END ==
PROVIDERS: Family Provider Family Medicine; PCP Family Medicine; Referring Provider Internal Medicine Cardiovascular Disease; Visit Provider Internal Medicine Cardiovascular Disease
DX: I25.5 Ischemic cardiomyopathy (principal)
CPT/HCPCS: 93306

== ENCOUNTER 2021-11-18 06:31 | Outpatient (CLI) | payer MEDICARE, BC, SELFPAY ==
--- NOTE | 2021-11-18 17:59 | STRESSREP ---
Stress Test Report Exercise myocardial perfusion stress test. 66-year-old lady with a history of coronary artery disease. Medications atorvastatin nitroglycerin carvedilol. Stress protocol: Resting EKG demonstrates sinus rhythm with a rate of 61 bpm normal intervals are noted resting blood pressure is 126/82 mmHg. The patient exercised according to regular Phill protocol for a total duration of 4 minutes. The patient completed 1 minute into stage II of the Phill protocol. The maximum heart rate attained was 139 bpm which was 90% of max impact at heart rate. The patient did maintain sinus rhythm with occasional premature ventricular complexes noted during exercise. During recovery there were more frequent premature ventricular complexes noted some in the pattern of bigeminy. The test was terminated due to dyspnea. The peak blood pressure was 152/84 mmHg. There were no ST changes noted at rest or with peak exercise to suggest ischemia. Myocardial perfusion protocol. 11.0 mCi of technetium 99m sestamibi was injected at rest. The patient exercised according to regular Phill protocol for total duration of 4 minutes and at peak exercise 33.8 mCi of technetium 99m sestamibi was injected stress images were obtained stress and rest images were reconstructed and compared in the short axis vertical long and horizontal long axis. Gated images were also obtained. Perfusion SPECT analysis: Review of the stress images demonstrate normal cardiac silhouette size. There is a medium size defect noted involving the inferolateral wall on the stress images with normal perfusion noted in the other blue. The resting images demonstrate a similar perfusion defect. The above is suggestive of a previous inferolateral infarct. A mid lateral perfusion defect is also noted on the rest and stress images. Basal inferior infarct is also suggested. No obvious reversibility is noted. Gated SPECT analysis: The gated ejection fraction is 52%. Conclusion: Exercise myocardial perfusion stress test with evidence of basal inferior, inferolateral and mid lateral infarct noted. No ischemia is noted. Preserved ejection fraction.
== END 2021-11-18 23:59 | disposition home or self-care (01) ==
LOC: CVS 06:37
PROVIDERS: PCP Family Medicine; Referring Provider Physician Assistant Medical; Visit Provider Physician Assistant Medical
DX: I25.10 Atherosclerotic heart disease of native coronary artery without angina pectoris (principal)
CPT/HCPCS: 78452; 93017; A9500; A4216

== ENCOUNTER → 2023-07-03 | Outpatient (CLI) | payer MEDICARE, BC, SELFPAY ==
--- NOTE | 2023-07-03 09:50 | RAD_ITS ---
STUDY: X-RAY CHEST REASON FOR EXAM: Female, 67 years old. Productive cough, sob since SEPT, CMP TECHNIQUE: PA and lateral views of the chest. COMPARISON: None. FINDINGS: The lungs are clear and expanded. There is no demonstrated pleural abnormality. Normal size heart. Normal mediastinum and elisabet. Normal visualized pulmonary arteries. Normal visualized aortic arch and descending thoracic aorta. Normal visualized thoracic spine. Normal visualized ribs, clavicles, and shoulders. There is no demonstrated abnormality of the visualized soft tissue structures of the upper abdomen. RAD/Chest PA and Lateral IMPRESSION: Normal x-ray examination of the chest. Electronically Signed: Chris Nunes MD at 17:02 EDT ,
[2023-07-03 10:45] LABS: Hemoglobin 12.8 g/dL (12.0-15.0); Mean Corpuscular Hgb 29.2 pg (27.0-32.0); Mean Corpuscular Volume 91.3 fL (81-99); Mean Platelet Vol. 10.1 fl (6.2-12.0); Platelet Count 346 K/mm3 (150-450); RBC Distribution Width CV 13.1 % (11.6-14.6); RBC Distribution Width SD 43.5 fl (35.1-43.9); Red Blood Count 4.38 M/mm3 (4.2-5.4); White Blood Count 6.8 K/mm3 (4.4-11.0)
[2023-07-03 11:13] LABS: BNP,B-Type NATRIURETIC PEPTIDE 97.7 pg/mL (0-100)
[2023-07-03 11:17] LABS: Anion Gap 2 (5-15); BUN 9 mg/dL (7-18); BUN/Creat Ratio 13.5 RATIO (10-20); Calcium,Total 8.8 mg/dL (8.5-10.1); Chloride 109 mmol/L (98-107); Creatinine, Serum 0.67 mg/dL (0.55-1.02); EST Glomerular Filtration Rate 94 mL/min (>60); Est Glom Filt Rate - Afr Amer 113 mL/min (>60); Glucose 92 mg/dL (74-106); Potassium 3.6 mmol/L (3.5-5.1); Sodium Level 141 mmol/L (136-145)
== END | disposition home or self-care (01) ==
LOC: LAB 09:36
PROVIDERS: PCP Family Medicine; Referring Provider Nurse Practitioner Gerontology; Visit Provider Nurse Practitioner Gerontology
DX: R05.8 Other specified cough (principal); R06.02 Shortness of breath; I25.10 Atherosclerotic heart disease of native coronary artery without angina pectoris; I25.2 Old myocardial infarction; I25.5 Ischemic cardiomyopathy
CPT/HCPCS: 36415; 71046; 80048; 83880; 85027

== ENCOUNTER → 2023-07-04 | Outpatient (CLI) | payer MEDICARE, BC, SELFPAY | END | disposition home or self-care (01) | PROVIDERS: PCP Family Medicine; Visit Provider Otolaryngology | DX: J32.8 Other chronic sinusitis (principal) | CPT/HCPCS: 87070; 87205 ==

== ENCOUNTER → 2023-07-17 | Outpatient (CLI) | payer MEDICARE, BC, SELFPAY ==
--- NOTE | 2023-07-17 12:38 | CT_ITS ---
STUDY: CT FACIAL BONES WITHOUT CONTRAST REASON FOR EXAM: Female, 67 years old. CHRONIC SINUSITIS RADIATION DOSAGE (If Supplied By Facility): CTDIvol = ( 33.06 ) mGy, DLP = ( 858.64 ) mGycm TECHNIQUE: The patient was scanned in a multi detector CT scanner. Sagittal and coronal images were reconstructed. Individualized dose optimization techniques were used for this CT. COMPARISON: None. FINDINGS: Normal soft tissue structures. Normal orbital blue and orbital contents. Normal nasal bones and anterior nasal spine. Normal facial bones. There is no demonstrated fracture. Mucosal thickening along the inferior aspect of the right maxillary sinus. CT/Sinus/Facial Bone IMPRESSION: Mucosal thickening along the inferior aspect of the right maxillary sinus. Electronically Signed: Janak Werner MD at 15:04 EST ,
== END | disposition home or self-care (01) ==
LOC: CT 12:37
PROVIDERS: PCP Family Medicine; Referring Provider Otolaryngology; Visit Provider Otolaryngology
DX: J32.8 Other chronic sinusitis (principal)
CPT/HCPCS: 70486

== ENCOUNTER → 2024-03-21 | Outpatient (CLI) | payer MEDICARE, BC, SELFPAY ==
--- NOTE | 2024-03-21 12:48 | ECHOD_ITS ---
Reason For Study: SOB Procedure This was a 2D Doppler, Color Flow transthoracic echocardiogram. Exam performed in department. Left Ventricle Normal LV size. Left ventricular systolic function is normal. The left ventricular ejection fraction is 55 %. Stage 1 diastolic dysfunction. No regional wall motion abnormalities noted. Right Ventricle Normal RV size. Normal systolic function. Atria Normal left atrium. Normal right atrium. Mitral Valve Normal mitral valve. Tricuspid Valve Normal tricuspid valve. Aortic Valve Trisinus/trileaflet aortic valve. Mild focal aortic valve calcification. Mild (1+) aortic valve insufficiency. Pulmonic Valve Normal pulmonic valve. Great Vessels Normal aortic root. The pulmonary artery is normal size. Normal inferior vena cava. Pericardium/Pleural No pericardial effusion. MMode/2D Measurements & Calculations LVIDd: 5.5 cm IVSd: 1.3 cm LVOT diam: 2.1 cm LVIDs: 4.5 cm LVPWd: 1.0 cm LVOT area: 3.4 cm2 RVDd: 3.3 cm FS: 18.9 % Ao root diam: 3.7 cm LAV(MOD-bp): 52.2 ml LVAd ap4: 36.3 cm2 LAV(MOD-bp) Indexed: 26.4 ml/m2 LVLd ap4: 8.6 cm LAV(MOD-sp2): 53.8 ml EDV(MOD-sp4): 123.6 ml LAV(MOD-sp4): 51.8 ml EDV(sp4-el): 130.1 ml LVAs ap4: 24.0 cm2 LVLs ap4: 7.8 cm ESV(MOD-sp4): 64.4 ml ESV(sp4-el): 63.4 ml EF(MOD-sp4): 47.9 % EF(sp4-el): 51.3 % SV(MOD-sp4): 59.2 ml SV(sp4-el): 66.8 ml LA A4 area: 18.8 cm2 LA dimension(2D): 4.4 cm RA A4 area: 12.6 cm2 Time Measurements MV dec time: 0.25 sec Doppler Measurements & Calculations MV E max enrique: 73.4 cm/sec Lat Peak E' Enrique: 5.4 cm/sec Med Peak E' Enrique: 4.2 cm/sec MV A max enrique: 87.0 cm/sec E/E' lat: 13.6 E/E' med: 17.5 MV E/A: 0.84 MV V2 max: 90.6 cm/sec Ao V2 max: 185.2 cm/sec MV max P.3 mmHg MV dec slope: 297.0 cm/sec2 Ao max P.7 mmHg MV V2 mean: 47.2 cm/sec Ao V2 mean: 126.6 cm/sec MV mean P.1 mmHg Ao mean P.5 mmHg MV V2 VTI: 36.8 cm Ao V2 VTI: 44.8 cm AV (velocity ratio): 0.77 MVA(VTI): 3.2 cm2 FABIOLA(I,D): 2.6 cm2 FABIOLA(V,D): 2.4 cm2 AI max enrique: 474.0 cm/sec LV V1 max: 131.5 cm/sec SV(LVOT): 116.5 ml AI max P.9 mmHg LV V1 max P.9 mmHg LV V1 mean P.3 mmHg AI dec slope: 210.6 cm/sec2 LV V1 mean: 98.1 cm/sec AI P1/2t: 659.3 msec LV V1 VTI: 34.5 cm PA V2 max: 94.3 cm/sec PA V2 mean: 69.2 cm/sec ECHO/Echo Complete Interpretation Summary Normal LV size. Left ventricular systolic function is normal. Mild focal aortic valve calcification. Mild (1+) aortic valve insufficiency. The left ventricular ejection fraction is 55 %. Stage 1 diastolic dysfunction. Ordering Physician: Kev Rangel Referring Physician: Kev Rangel Performed By: Zulema Montes RCS
== END | disposition home or self-care (01) ==
PROVIDERS: PCP Family Medicine; Referring Provider Nurse Practitioner Family; Visit Provider Nurse Practitioner Family
DX: I25.5 Ischemic cardiomyopathy (principal); I25.10 Atherosclerotic heart disease of native coronary artery without angina pectoris; I10 Essential (primary) hypertension; E78.00 Pure hypercholesterolemia, unspecified; R06.02 Shortness of breath; R05.8 Other specified cough
CPT/HCPCS: 93306

== ENCOUNTER → 2024-09-16 | Outpatient (CLI) | payer MEDICARE, BC, SELFPAY | END | disposition home or self-care (01) | PROVIDERS: PCP Family Medicine; Referring Provider Family Medicine; Visit Provider Family Medicine | DX: R05.9 Cough, unspecified (principal) | CPT/HCPCS: 94060; 94726; 94729 ==

== ENCOUNTER → 2024-10-18 | Outpatient (CLI) | payer MEDICARE, BC, SELFPAY ==
[2024-10-18 12:40] LABS: Absolute Lymphocyte Count 1.97 X10^3/uL (0.83-4.51); Absolute Neutrophil Count 5.2 X10^3/uL (2.0-7.7); Basophil# 0.05 X10^3/uL; Basophil% 0.6 % (0-1); Eosinophil# 0.12 X10^3/uL; Eosinophils% 1.5 % (0-5); Hematocrit 40.2 % (37-47); Hemoglobin 12.3 g/dL (12.0-15.0); Lymphocyte # 1.97 X10^3/ul (0.83-4.51); Lymphocyte % 24.4 % (19-41); Mean Corp Hgb Conc 30.6 g/dL (32-36); Mean Corpuscular Volume 91.4 fL (81-99); Mean Platelet Vol. 9.9 fl (6.2-12.0); Monocyte# 0.65 X10^3/uL; Monocyte% 8.1 % (0-10); NRBC Flagged by Analyzer 0 % (0-5); Neutrophil # 5.23 X10^3/uL (2.7-7.7); Neutrophil % 64.8 % (47-70); Platelet Count 409 K/mm3 (150-450); RBC Distribution Width CV 14.1 % (11.6-14.6); RBC Distribution Width SD 47.4 fl (35.1-43.9); White Blood Count 8.1 K/mm3 (4.4-11.0)
[2024-10-22 14:08] LABS: Aspirgillus flavus Negative (Neg:<1:1); Aspirgillus fumigatus Negative (Neg:<1:1); Aspirgillus niger Negative (Neg:<1:1); Immunoglobulin E 5 IU/mL (6-495)
[2024-10-23 00:07] LABS: Alternaria alternata <0.10 kU/L (Class 0); Bermuda Grass <0.10 kU/L (Class 0); Bluegrass, Kentucky <0.10 kU/L (Class 0); Cat Hair/Dander, Standard <0.10 kU/L (Class 0); D farinae Mite <0.10 kU/L (Class 0); D pteronyssinus <0.10 kU/L (Class 0); Dog Epithelia <0.10 kU/L (Class 0); Elm, American White <0.10 kU/L (Class 0); Mouse Urine <0.10 kU/L (Class 0); Oak, White <0.10 kU/L (Class 0); Plantain, English <0.10 kU/L (Class 0); Ragweed, Short/Common <0.10 kU/L (Class 0)
== END | disposition home or self-care (01) ==
LOC: LAB 11:47
PROVIDERS: PCP Family Medicine; Referring Provider Nurse Practitioner Family; Visit Provider Nurse Practitioner Family
DX: R05.8 Other specified cough (principal)
CPT/HCPCS: 36415; 82785; 85025; 86003; 86606

== ENCOUNTER → 2024-11-08 | Outpatient (CLI) | payer MEDICARE, BC, SELFPAY ==
--- NOTE | 2024-11-08 15:52 | CT_ITS ---
PROCEDURE: CHEST WITHOUT CONTRAST REASON FOR EXAM: Three-month history of cough. TECHNIQUE: Chest CT without contrast. COMPARISON: None. FINDINGS: Hardware: None. Lymph nodes: Multiple mediastinal lymph nodes are seen. They measure less than 1.5 cm. Heart and Vasculature: Normal heart size. No pericardial effusion. Atherosclerotic calcifications of the thoracic aorta. Thoracic aorta and pulmonary arteries have normal contours; noncontrast technique limits evaluation. Coronary Artery Calcifications: Present Lungs and Airways: Hyperinflation. Prominence of the central pulmonary arteries suggestive of COPD. Increased linear markings in both lungs. This may represent mild degree of scarring. Pleura: No pleural effusion. No pneumothorax. Upper Abdomen: Visualized portions of the upper abdominal viscera are unremarkable. Bones: Degenerative changes of the thoracic spine. CT/Chest without Contrast IMPRESSION: Findings suggestive of bilateral pulmonary scarring with prominence of the cent ral pulmonary arteries. Small benign-appearing lymph nodes. One or more dose reduction techniques were used (e.g., Automated exposure contr ol, adjustment of the mA and/or kV according to patient size, use of iterative reconstruction technique). Reading Location: [id number]
== END | disposition home or self-care (01) ==
LOC: CT 15:48
PROVIDERS: PCP Family Medicine; Referring Provider Nurse Practitioner Family; Visit Provider Nurse Practitioner Family
DX: R05.8 Other specified cough (principal)
CPT/HCPCS: 71250

== ENCOUNTER → 2025-04-12 | Outpatient (CLI) | payer MEDICARE, BC, SELFPAY ==
[2025-04-12 12:21] LABS: Hematocrit 38.7 % (37-47); Hemoglobin 12.5 g/dL (12.0-15.0); Immature Granulocytes Count 0.080 X10^3/uL (0.0-0.0); Mean Corp Hgb Conc 32.3 g/dL (32-36); Mean Corpuscular Volume 91.3 fL (81-99); Mean Platelet Vol. 9.7 fl (6.2-12.0); NRBC Flagged by Analyzer 0 % (0-5); Platelet Count 389 K/mm3 (150-450); RBC Distribution Width CV 14.1 % (11.6-14.6); RBC Distribution Width SD 47.6 fl (35.1-43.9); Red Blood Count 4.24 M/mm3 (4.2-5.4); White Blood Count 8.3 K/mm3 (4.4-11.0)
== END | disposition home or self-care (01) ==
LOC: LAB 11:14
PROVIDERS: PCP Family Medicine; Referring Provider Nurse Practitioner Family; Visit Provider Nurse Practitioner Family
DX: R06.02 Shortness of breath (principal)
CPT/HCPCS: 36415; 85025

== ENCOUNTER → 2025-08-10 | Outpatient (CLI) | payer MEDICARE, BC, SELFPAY ==
[2025-08-10] MEDS: Methacholine Chloride 18 ml neb kit INHALATION (12:55)
== END | disposition home or self-care (01) ==
LOC: PSN 12:36
PROVIDERS: PCP Family Medicine; Referring Provider Nurse Practitioner Family; Visit Provider Nurse Practitioner Family
DX: R05.9 Cough, unspecified (principal)
CPT/HCPCS: 94070; 95070